=== PATIENT | male | born 1950 | race Caucasian/White ===

== ENCOUNTER 2023-05-14 13:16 | Outpatient (OUT) | payer MEDICARE, SELFPAY ==
--- NOTE | 2023-05-14 13:26 | ECG_ITS ---
[facility] Test Date: 2023-05-14 Pat Name: LIS SHAH Department: Room: - Gender: Male Clinic Md Associate: : 1950 Requested By: SEKOU AGUILERA Order Number: [id number] Reading MD: CHIARA BLANC Measurements Intervals [place] Rate: 64 P: -53 MA: 121 QRS: 62 QRSD: 93 T: 50 QT: 390 QTc: 403 Interpretive Statements ECTOPIC ATRIAL RHYTHM with short, inverted P waves noted in limb leads ABNORMAL RHYTHM ECG WARNING: DATA QUALITY MAY AFFECT INTERPRETATION No previous ECG available for comparison Electronically Signed On 05-15-2023 6:53:09 EST by CHIARA BLANC
--- NOTE | 2023-05-14 13:26 | XR_ITS ---
The [address] [address] Patient Name: LIS SHAH MRN: [id number] date: 1950 Sex: M Assigned Patient Location: [facility] Current Patient Location: [facility] Accession/Order Number: [id number] Exam Date: 05/14/2023 14:58 Report Date: 05/14/2023 15:24 At the request of: SEKOU AGUILERA Procedure: XR chest 2V PROCEDURE: XR chest 2V DATE: 05/14/2023 1:58 PM REGISTERED NURSE SURGICAL SERVICES COMPARISONS: None. CLINICAL INDICATION: 73 years Male Preop exam FINDINGS: The cardiomediastinal silhouette and pulmonary vasculature are within normal limits. There is evidence of granulomatous changes of the left perihilar region extending to the left lung base. The lungs are otherwise clear. There is no evidence of pleural effusion or pneumothorax. XR/XR chest 2V IMPRESSION: Chest radiograph is essentially within normal limits. Evidence of old granulomatous changes. Electronically authenticated by: EMILIE RICHARDS Date: 05/14/2023 15:24
[2023-05-14 15:18] LABS: INR 0.97; Partial Thromboplastin Time 30.8 sec (22.3-36.2); Prothrombin Time 10.3 sec (9.0-11.6)
[2023-05-14 15:23] LABS: Basophils Absolute Auto 0.1 10^3/uL (0.0-0.1); Basophils Percent Auto 0.6 % (0.2-2.0); Eosinophils Absolute Auto 0.2 10^3/uL (0.0-0.7); Eosinophils Percent Auto 2.1 % (0.9-7.0); Hematocrit 48.3 % (42.0-54.0); Hemoglobin 15.7 g/dL (14.0-18.0); Immature Granulocytes Abs Auto 0.03 10^3/uL (0.00-0.03); Immature Granulocytes Pct Auto 0.4 % (0.0-0.5); Lymphocytes Absolute Auto 2.1 10^3/uL (1.2-3.8); Lymphocytes Percent Auto 25.7 % (20.5-60.0); Mean Corpuscular HGB Conc 32.5 g/dL (29.9-35.2); Mean Corpuscular Hemoglobin 29.2 pg (25.9-34.0); Mean Corpuscular Volume 89.8 fL (80.0-94.0); Mean Platelet Volume 9.8 fL (9.5-13.5); Monocytes Absolute Auto 0.8 10^3/uL (0.3-0.8); Monocytes Percent Auto 9.8 % (1.7-12.0); Neutrophils Absolute Auto 5.1 10^3/uL (1.4-6.5); Neutrophils Percent Auto 61.4 % (43.0-75.0); Platelet Count 215 10^3/uL (150-450); Red Blood Count 5.38 10^6/uL (4.70-6.10); Red Cell Distribution Width 14.2 % (11.0-15.0); White Blood Count 8.3 10^3/uL (4.0-11.0)
[2023-05-14 15:27] LABS: Anion Gap 14.9; Carbon Dioxide 26.2 mmol/L (21.0-32.0); Chloride 104 mmol/L (98-107); Estimated GFR (African America 50 (>=60); Estimated GFR (Non-African Ame 41 (>=60); Glucose 119 mg/dL (74-106); Potassium 4.1 mmol/L (3.5-5.1); Sodium 141 mmol/L (136-145)
== END 2023-05-14 13:17 | disposition home or self-care (01) ==
LOC: PST 13:19
PROVIDERS: PCP Nurse Practitioner; Visit Provider Urology
DX: Z01.810 Encounter for preprocedural cardiovascular examination (principal); Z01.812 Encounter for preprocedural laboratory examination; N40.1 Benign prostatic hyperplasia with lower urinary tract symptoms; N35.919 Unspecified urethral stricture, male, unspecified site
CPT/HCPCS: 71046; 80048; 85025; 85610; 85730; 93005